=== PATIENT | female | born 1985 | race African-American/Black ===

== ENCOUNTER 2025-03-05 13:25 | Inpatient (IN) | payer OTHER ==
[~2025-03-05] VITALS: Ht 167.6 cm; Wt 88.6 kg
--- NOTE | 2025-03-05 13:40 | ED.PDOC ---
History of Present Illness HPI Comments 39 y/o F with past medical history of HTN had recent onset of palpitation started yesterday 1400, sudden onset noted in smartwatch sinus tachycardia, she followed up in [facility], she was sent to ER for further evaluation. Denies, chest pain, other cardiac symptoms and never had any similar symptoms previou y. Came with EMS and notably had trop of 40 one time, hemodynamically stable. Chief Complaint: Palpitation, HR 120s Time Seen by MD: 13:37 Primary Care Provider: [facility] Reviewed Notes: Nurses Notes, Investigator Claims Notes, Medications, Allergies Allergies: Coded Allergies: Codeine (Verified Allergy, Unknown, 03/05/25) Information Source: Patient Mode of Arrival: EMS Severity: Mild Timing: Days Duration: Since onset, Intermittent Prehospital treatment: Hot Press Operator, Other (trops) Location: left chest Quality intermittent Associated signs and symptoms palpitation Past Medical History PAST MEDICAL HISTORY: Anxiety, HTN Surgical History: Surgical History (Other): tummy tuck, breast implants GROUP PROGRAM MANAGER History: No Pertinent GROUP PROGRAM MANAGER History Family History Family History: Family hx of heart barrie, Family hx of HTN Family History (Other): ''mother has tachycardia needing heart rate pills '' Social History Smoker: Non-Smoker Alcohol: Rarely Drugs: Denies Drug Use Lives In: Home Constitutional: denies: chills, diaphoresis, fatigue, fever, malaise, sweats, weakness, others EENTM: denies: blurred vision, double vision, ear bleeding, ear discharge, ear drainage, ear pain, ear ringing, eye pain, eye redness, hearing loss, mouth pain, mouth swelling, nasal discharge, nose bleeding, nose congestion, nose pain, photophobia, tearing, throat pain, throat swelling, voice changes, others Respiratory: denies: cough, hemoptysis, orthopnea, SOB at rest, shortness of breath, SOB with excertion, stridor, wheezing, others Cardiovascular: reports: palpitations; denies: chest pain, dizzy spells, diaphoresis, Dyspnea on exertion, edema, irregular heart beat, left arm pain, lightheadedness, PND, syncope, others Gastrointestinal: denies: abdomen distended, abdominal pain, blood streaked bowels, constipated, diarrhea, dysphagia, difficulty swallowing, hematemesis, melena, nausea, poor appetite, poor fluid intake, rectal bleeding, rectal pain, vomiting, others Genitourinary: denies: abnormal vagina bleeding, burning, dyspareunia, dysuria, flank pain, frequency, hematuria, incontinence, pain, , vagina discharge, urgency, others Neurological: denies: dizziness, fainting, headache, left sided numbness, left sided weakness, numbness, paresthesia, pre-existing deficit, right sided numbness, right sided weakness, seizure, speech problems, tingling, tremors, weakness, others Musculoskeletal: denies: back pain, gout, joint pain, joint swelling, muscle pain, muscle stiffness, neck pain, others Integumetry: denies: bruises, change in color, change in hair/nails, dryness, laceration, lesions, lumps, rash, wounds, others Allergic/Immunocompromised: denies: Difficulty Healing, Frequent Infections, Hives, Itching, others Hematologic/Lymphatic: denies: anemia, blood clots, easy bleeding, easy bruising, swollen glands, others Endocrine: denies: excessive hunger, excessive sweating, excessive thirst, excessive urination, flushing, intolerance to cold, intolerance to heat, unexplained weight gain, unexplained weight loss, others Psychiatric: denies: anxiety, bipolar disorder, depression, hopeless, panic disorder, schizophrenia, sleepless, suicidal, others Physical Exam General Appearance: No Apparent Distress HEENT: Normal ENT Inspection, Pale Conjuntivae (L), Pale Conjuntivae (R) Neck: Normal Inspection, Supple Respiratory: Lungs Clear, No Accessory Muscle Use, No Respiratory Distress, Normal Breath Sounds Cardiovascular: No Edema, No Murmur, No Gallop, Normal Peripheral Pulses, Tachycardia Breast Exam: Deferred Gastrointestinal: Non Tender, Normal Bowel Sounds Genitalia: Deferred Pelvic: Deferred Rectal: Deferred Extremities: No calf tenderness, No pedal edema Neurologic: Normal Affect, Normal Mood Cerebellar Function: Normal Reflexes: NOT DONE Skin: Dry, None, Normal Color, Warm Lymphatic: NOT DONE Was a procedure done? Was a procedure done?: No EKG EKG : Comments sinus tachycardia Differential Dx Considerations may include: SVT, Sinus tachycardia, dehydration, emotional stress, anxiety, symptomatic palpitation, type 2 NSTEMI, hyperthyroidism, Uncontrolled HTN Low risk of PE X-Ray, Labs, Meds, VS Vital Signs Date Time Temp Pulse Resp B/P (MAP) Pulse Ox O2 Delivery O2 Flow Rate FiO2 03/05/25 17:09 102 03/05/25 17:09 97.9 100 16 150/88 (108) 99 97.9 03/05/25 17:09 99 16 99 Room Air* 0 21 03/05/25 15:33 154/67 03/05/25 13:26 120 03/05/25 13:25 98.2 112 24 179/75 (109) 98 98.2 Lab Test 03/05/25 17:12 03/05/25 14:55 03/05/25 14:06 Range/Units Troponin I High Sensitivity 43 *H 48 *H 55 *H </=34 ng/L White Blood Count 4.2 L 4.4-10.8 10^3/uL Red Blood Count 4.25 4.0-5.20 10^6/uL Hemoglobin 10.5 L 12.2-16.2 g/dL Hematocrit 32.7 L 36.0-46.0 % Mean Corpuscular Volume 77.0 L 80.0-100.0 fL Mean Corpuscular Hemoglobin 24.7 L 28.0-32.0 pg Mean Corpuscular Hemoglobin Concent 32.1 32.0-36.0 g/dL Red Cell Distribution Width 18.3 H 11.8-14.3 % Platelet Count 392 140-450 10^3/uL Mean Platelet Volume 7.5 6.9-10.8 fL Neutrophils (%) (Auto) 55.1 37.0-80.0 % Lymphocytes (%) (Auto) 28.6 10.0-50.0 % Monocytes (%) (Auto) 13.1 H 0.0-12.0 % Eosinophils (%) (Auto) 1.6 0.0-7.0 % Basophils (%) (Auto) 1.6 0.0-2.0 % Neutrophils # (Auto) 2.3 1.6-8.6 10 ^3/uL Lymphocytes # (Auto) 1.2 0.4-5.4 10 ^3/uL Monocytes # (Auto) 0.5 0-1.3 10 ^3/uL Eosinophils # (Auto) 0.1 0-0.8 10 ^3/uL Basophils # (Auto) 0.1 0-0.2 10 ^3/uL Nucleated Red Blood Cells 0.1 % Thyroid Stimulating Hormone (TSH) < 0.01 L 0.55-4.78 uIU/mL Free Thyroxine (T4) Calculated 3.29 H 0.89-1.76 ng/dL Free Triiodothyronine (T3) pg/mL 14.65 H 2.3-4.2 pg/mL Current Medications Medications (Trade) Dose Ordered Sig/Yanci Route Start Time Stop Time Status Last Admin Amlodipine Besylate (Norvasc Tablet) 10 mg ONCE ONCE PO 03/05/25 15:15 03/05/25 15:16 DC 03/05/25 15:33 Aspirin 325 mg ONCE ONCE PO 03/05/25 16:15 03/05/25 16:21 DC 03/05/25 17:18 Atorvastatin Calcium (Lipitor) 40 mg ONCE ONCE PO 03/05/25 16:15 03/05/25 16:21 DC 03/05/25 17:18 Images Reviewed?: Images reviewed and evaluated by me Time of 1ST Reevaluation: 15:28 Reevaluation 1ST: Improved (Elevated blood pressure is 170s, denies any chest pain, patient is given a home medication amlodipine 10 mg oral once. Repeat blood pressure in about 2 hours. Initial EKG reveals no ST-T changes acutely, sinus tachycardia in 120s, hemodynamically stable, mild elevation of troponin 55, next troponin pending, TSH 0.01 low, free T3-T4 pending. Follow up further workup. Patient remains in the ER holding area.) Time of 2ND Reevaluation: 16:07 Reevaluation 2ND: Improved (Elevated trops in 55 > 48 no ekg changes, no chest pain, intermittent palpitations, ordered ECHO, admitting inpatient for further workup and management. Likely tachycardia secondary to hyperthyroidism. Heart score of 2. Discussed with Dr. Flores. ) Time of 3RD Reevaluation: 18:20 Reevaluation 3RD: Unchanged (Troponin elevated, HR still in 110-120s, active palpitation. Discussed with Dr. Flores. Discussed with [place] Reporting Lead over phone. Authorization for Admission obtained. #[id number] ) Consultation: PCP, Cardiology Patient Education/Counseling: Diagnosis, Treatment, Prognosis, Need For Follow Up Family Education/Counseling: No Family Present Sepsis Sepsis Reasesment Focused Exam Sepsis focused exam: focus exam completed, time: Departure 1 Departure Time of Disposition: 16:11 Impression: Primary Impression: Tachycardia Additional Impressions: Hyperthyroidism Palpitation Ruled out for myocardial infarction Disposition: ADMITTED INPATIENT Admit to: Tele Condition: Fair Critical Care Note Critical Care Time?: No Stability Stability form required: No Heart Score Heart Score: Heart Score Response (Comments) Value History N/A 0 EKG Normal 0 Age <45 0 Risk Factors 1 or 2 risk factors 1 Troponin 1-2 x's Normal limit 1 Total 2 ASHLEE PERRY RESIDENT Mar 05, 2025 13:40
[2025-03-05] MEDS ORDERED: FURO20TA4 GT (13:52)
[2025-03-05] MEDS ORDERED: AML5T GT (13:52)
[2025-03-05 14:15] LABS: Basophils # (auto) 0.1 10 ^3/uL (0-0.2); Eosinophils # (auto) 0.1 10 ^3/uL (0-0.8); Lymphocytes # (auto) 1.2 10 ^3/uL (0.4-5.4); Monocytes # (auto) 0.5 10 ^3/uL (0-1.3); Neutrophils # (auto) 2.3 10 ^3/uL (1.6-8.6); Nucleated Red Blood Cells % 0.1 %; White Blood Cell 4.2 10^3/uL (4.4-10.8)
[2025-03-05 14:16] LABS: Basophils % (auto) 1.6 % (0.0-2.0); Eosinophils % (auto) 1.6 % (0.0-7.0); Hematocrit 32.7 % (36.0-46.0); Hemoglobin 10.5 g/dL (12.2-16.2); Lymphocytes % (auto) 28.6 % (10.0-50.0); Mean Corpuscular Hemoglobin 24.7 pg (28.0-32.0); Mean Corpuscular Hgb Conc. 32.1 g/dL (32.0-36.0); Monocytes % (auto) 13.1 % (0.0-12.0); Neutrophils % (auto) 55.1 % (37.0-80.0); Platelet Count (auto) 392 10^3/uL (140-450); Red Blood Cells 4.25 10^6/uL (4.0-5.20); Red Cell Distribution Width 18.3 % (11.8-14.3)
[2025-03-05] MEDS: amLODIPine BESYLATE 5 MG TAB PO ONE (15:33)
[2025-03-05 15:45] LABS: Free T3 14.65 pg/mL (2.3-4.2); Free T4 (Free Thyroxine) 3.29 ng/dL (0.89-1.76)
[2025-03-05 17:09] VITALS: PULSE 99; RESP 16; O2SAT 99
[2025-03-05] MEDS: ATORVASTATIN 20 MG TAB PO ONE (17:18)
[2025-03-05] MEDS: ASPirin 325 MG TAB PO ONE (17:18)
[2025-03-05 19:30] VITALS: PULSE 104; RESP 18; O2SAT 98
--- NOTE | 2025-03-05 22:14 | DVHHPRES ---
History of Present Illness Resident Creating Document: KARMA MONZON History of Present Illness Nilton Guan is a 39-year-old female patient who presents to the ED with chief complaint of sudden onset palpitation which started 24 hours before her admission. Per patient, her smart watch diagnosed with sinus tachycardia. Denies syncope, chest pain, dyspnea, nausea, vomiting, diarrhea, abdominal pain, recent travel, sick contacts and motor or sensory deficits. Past medical history: Anxiety, hypertension Surgical history: , liposuction, breast augmentation Family history: All her family has heart disease and hypertension Social history: Lives with family. Denies current tobacco, alcohol and other drug abuse. Occasionally drinks alcohol Allergies: Codeine Home medication: Denies Patient seen and examined at bedside. Currently has no new complaints. Obtain thyroid ultrasound which showed multinodular goiter which is possibly associated with Graves disease. Pending antibody results. Patient is started on atenolol Past Medical History Per HPI Past Surgical History Per HPI Family History Per HPI Past Social History Per HPI Review of Systems Review of Systems Per HPI Allergies: Coded Allergies: Codeine (Verified Allergy, Unknown, 03/05/25) Exam Vital Signs Vital Signs Date Time Temp Pulse Resp B/P (MAP) Pulse Ox O2 Delivery O2 Flow Rate FiO2 03/05/25 20:00 98 03/05/25 19:30 99.3 18 133/73 (93) 98 99.3 03/05/25 19:30 Room Air* 0 21 Exam Patient lying in bed, in no acute distress General: Lucid, afebrile, mucosae are moist Cardiovascular: Tachycardia. Normal S1 and S2. Early peaking systolic crescendo decrescendo murmur best heard in a Abdomen: Soft, nontender, no organomegaly, normal bortic foci. No gallops or rubs Respiratory: Normal ventilation mechanics. Clear lung sounds on auscult ationowel sounds MSK/skin: Mobilizes 4 limbs. Skin is dry and warm Neurological: Oriented in 3 spheres. No motor no sensitive deficits. Pupils are isocoric and reactive Labs/Xrays Labs Test 03/05/25 17:12 03/05/25 14:06 Range/Units Troponin I High Sensitivity 43 *H </=34 ng/L White Blood Count 4.2 L 4.4-10.8 10^3/uL Red Blood Count 4.25 4.0-5.20 10^6/uL Hemoglobin 10.5 L 12.2-16.2 g/dL Hematocrit 32.7 L 36.0-46.0 % Mean Corpuscular Volume 77.0 L 80.0-100.0 fL Mean Corpuscular Hemoglobin 24.7 L 28.0-32.0 pg Mean Corpuscular Hemoglobin Concent 32.1 32.0-36.0 g/dL Red Cell Distribution Width 18.3 H 11.8-14.3 % Platelet Count 392 140-450 10^3/uL Mean Platelet Volume 7.5 6.9-10.8 fL Neutrophils (%) (Auto) 55.1 37.0-80.0 % Lymphocytes (%) (Auto) 28.6 10.0-50.0 % Monocytes (%) (Auto) 13.1 H 0.0-12.0 % Eosinophils (%) (Auto) 1.6 0.0-7.0 % Basophils (%) (Auto) 1.6 0.0-2.0 % Neutrophils # (Auto) 2.3 1.6-8.6 10 ^3/uL Lymphocytes # (Auto) 1.2 0.4-5.4 10 ^3/uL Monocytes # (Auto) 0.5 0-1.3 10 ^3/uL Eosinophils # (Auto) 0.1 0-0.8 10 ^3/uL Basophils # (Auto) 0.1 0-0.2 10 ^3/uL Nucleated Red Blood Cells 0.1 % Thyroid Stimulating Hormone (TSH) < 0.01 L 0.55-4.78 uIU/mL Free Thyroxine (T4) Calculated 3.29 H 0.89-1.76 ng/dL Free Triiodothyronine (T3) pg/mL 14.65 H 2.3-4.2 pg/mL Assessment/Plan Assessment/Plan Assessment: Hyperthyroidism NSTEMI probable type 2 Microcytic anemia Vitamin-D deficiency Multinodular thyroid goiter Hypokalemia Plan: TSH below 0.01, free T4 3.29. Interpreted as symptomatic hyperthyroidism. Initiated beta-blockers. Have ordered autoimmune antibodies to diagnosed Graves disease. Thyroid ultrasound shows multinodular goiter possible Graves disease. Ordered echocardiogram due to NSTEMI (probable type 2) Evaluate need of endocrinology evaluation. Ordered anemia workup Goals of care discussed with patient for over 18 minutes: Full code status Discussed plan with Dr. Potter, patient and nurses: Initiated beta roxane for symptomatic hyperthyroidism (no signs of thyrotoxicosis). Ordered echocardiogram to evaluate cardiac function. Pending complementary workup results. Patient unstable for transferred to [place]. Plan discussed with: Patient, Other (Nurses) My Orders Orders - KARMA MONZON RESIDENT Procedure Category Date Status Time Admit ADMIT 03/05/25 Transmitted 22:10 Code Status CODE 03/05/25 Transmitted 22:10 Vital Signs [facility] 03/05/25 Transmitted 22:10 Review Orders With [facility] 03/05/25 Transmitted Adm.Md 22:10 Regular Diet DIET 03/06/25 Transmitted Breakfast Acetaminophen Tablet PHA 03/05/25 Transmitted (Tylenol Tablet) 22:15 Notify Of Changes [facility] 03/05/25 Transmitted From Base 22:10 Advance Directive [facility] 03/05/25 Transmitted 22:10 Patient Condition ORDERS 03/05/25 Transmitted 22:10 Allergies [facility] 03/05/25 Transmitted 22:10 Ondansetron Hcl PHA 03/05/25 Transmitted (Zofran) 22:15 Morphine 2mg Iv Q4hprn PHA 03/05/25 Transmitted 22:15 Oxygen By Nasal RT 03/05/25 Transmitted Cannula 22:10 Stat Ekg For Chest [facility] 03/05/25 Transmitted Pain 22:10 Notify Of Changes [facility] 03/05/25 Transmitted From Base 22:10 Septic Tank Cleaner For [facility] 03/05/25 Transmitted 24 Hours 22:10 Emergency Dysrhythmia [facility] 03/05/25 Transmitted Protocol 22:10 Rhythm Strips Once [facility] 03/05/25 Transmitted Every Shift 22:10 Vitamin D, 25-Hydroxy LAB 03/05/25 Transmitted 22:10 Vitamin B12 LAB 03/05/25 Transmitted 22:10 Urinalysis LAB 03/05/25 Transmitted 22:10 Phosphorus LAB 03/05/25 Transmitted 22:10 Magnesium LAB 03/05/25 Transmitted 22:10 Hemoglobin A1c LAB 03/05/25 Transmitted 22:10 Drug Screen LAB 03/05/25 Transmitted 22:10 Lipid Panel LAB 03/05/25 Transmitted 22:10 Comprehensive LAB 03/06/25 Verified Metabolic Panel 04:00 Complete Blood Count LAB 03/06/25 Verified 04:00 Comprehensive LAB 03/05/25 Transmitted Metabolic Panel 22:10 PTPTT LAB 03/06/25 Verified 04:00 Date of Service: Mar 05, 2025 Billing Provider: EARLENE POTTER MD Common Visit Codes: [id number] INP/OBS CARE (HIGH) KARMA MONZON RESIDENT Mar 05, 2025 22:14 EARLENE POTTER MD Mar 06, 2025 21:19
[2025-03-05] MEDS ORDERED: ACETAMINOPHEN 325 MG TAB PO PRN (22:15)
[2025-03-05] MEDS ORDERED: ONDANSETRON HCL 4 MG/2 ML VIAL IV PRN (22:15)
[2025-03-05] MEDS ORDERED: MORPHINE SULFATE INJ 2 MG/ml SYRG IV PRN (22:15)
[2025-03-05 22:41] LABS: Magnesium 1.7 mg/dL (1.6-2.6)
[2025-03-05 22:42] LABS: Phosphorus 3.6 mg/dL (2.4-5.1)
[2025-03-05 22:44] LABS: Alanine Aminotransferase 38 U/L (7-40); Calcium 9.7 mg/dL (8.7-10.4); Carbon Dioxide 23 mmol/L (20-31); Chloride 105 mmol/L (98-107)
[2025-03-05 22:45] LABS: Albumin 4.1 g/dL (3.2-4.8); Anion Gap 12 (5-15); Aspartate Aminotransferase 32 U/L (13-40); Glucose 97 mg/dL (74-106); Potassium 3.6 mmol/L (3.5-5.1); Sodium 140 mmol/L (136-145); Total Protein 6.7 g/dL (5.7-8.2)
[2025-03-05 22:46] LABS: Alkaline Phosphatase 45 U/L (46-116); Bilirubin, Total 1.7 mg/dL (0.2-1.0); Blood Urea Nitrogen 8 mg/dL (9-23)
--- NOTE | 2025-03-05 23:16 | DVH ---
EXAM: US THYROID; DATE: March 05, 2025 HISTORY: Hyperthyroidism COMPARISON: None TECHNIQUE: Real-time sonographic imaging was performed of the thyroid gland using grayscale and color flow imaging with a high-frequency linear transducer. FINDINGS: Right thyroid lobe measures 4.9 x 2 x 1.7 cm and left thyroid lobe measures 4.6 x 1.8 x 1.8 cm in the isthmus is enlarged measuring 7 mm AP. The thyroid demonstrates increased vascularity and innumerable small indistinct hypoechoic nodules. t he left thyroid lobe is dominated by a single hypoechoic nodule with indistinct borders which measure s approximately 3.1 x 0.93 cm. IMPRESSION: 1. Multinodular goiter with findings suggesting possible Graves disease. [employer] TI-RADS Categories and Recommendations (2017): TR1: 0 points, Benign, No FNA TR2: 2 points, Not suspicious, No FNA TR3: 3 points, Mildly suspicious, FNA if > or = 2.5 cm, Follow if > or = 1.5 cm TR4: 4-6 points, Moderately Suspicious, FNA if > or = 1.5 cm, Follow if > or = 1.0 cm TR5: 7+ points, Highly Suspicious, FNA if > or = 1.0 cm, Follow if > or = 0.5 cm Follow-up ultrasound guidelines: TR5: yearly for 5 years, if no growth or change in TI-RADS level TR4: at 1, 2, 3 and 5 years, if no growth or change in TI-RADS level TR3: at 1, 3 and 5 years, if no growth or change in TI-RADS level If increased but below threshold for FNA, repeat in one year. Source: ACR Thyroid Imaging, Reporting and Data System (TI-RADS): White Paper of the ACR TI-RADS Committee. Cleo pillai al., J Am Víctor Radiol 2017;14:587-595.
[2025-03-05 23:53] VITALS: BP 115/70; PULSE 94; RESP 18; TEMP 98.5; O2SAT 100
[2025-03-06] VITALS (8 sets, daily range): BP systolic 106–131; BP diastolic 62–73; PULSE 86–103; RESP 16–20; TEMP 98.1–98.7; O2SAT 98–100
[2025-03-06 00:38] LABS: Urine Bacteria None Seen /hpf (None Seen)
[2025-03-06 00:47] LABS: Urine Blood Negative /uL (Negative); Urine Clarity Clear (Clear); Urine Color Yellow (Yellow); Urine Mucus FEW (None Seen); Urine Protein, UAD Negative (Negative); Urine Specific Gravity 1.023 (1.001-1.035); Urine Squamous Epithelial Cell FEW /hpf (<5); Urine Urobilinogen 2 mg/dL (Negative); Urine WBC 2 /HPF (0-5)
[2025-03-06] MEDS: ATENOLOL 25 MG TAB PO ONE (01:30)
[2025-03-06 02:01] LABS: Amphetamine Screen, Urine Neg (NEGATIVE); Barbiturate Scree,Urine Neg (NEGATIVE); Benzodiazephine Screen, Urine Neg (NEGATIVE); Cannabinoid Screen, Urine Neg (NEGATIVE); Cocaine Screen, Urine Neg (NEGATIVE); Opiate Scree,Urine Neg (NEGATIVE); Phencyclidine Screen, Urine Neg (NEGATIVE)
[2025-03-06 06:37] LABS: Basophils # (auto) 0 10 ^3/uL (0-0.2); Eosinophils # (auto) 0.6 10 ^3/uL (0-0.8); Lymphocytes # (auto) 1.5 10 ^3/uL (0.4-5.4); Monocytes # (auto) 0.7 10 ^3/uL (0-1.3); Nucleated Red Blood Cells % 0.1 %
[2025-03-06 06:39] LABS: Basophils % (auto) 0.3 % (0.0-2.0); Hematocrit 29.7 % (36.0-46.0); Hemoglobin 9.4 g/dL (12.2-16.2); Mean Corpuscular Hemoglobin 24.5 pg (28.0-32.0); Mean Corpuscular Hgb Conc. 31.8 g/dL (32.0-36.0); Mean Corpuscular Volume 77.1 fL (80.0-100.0); Monocytes % (auto) 17.9 % (0.0-12.0); Neutrophils # (auto) 1.1 10 ^3/uL (1.6-8.6); Neutrophils % (auto) 27.6 % (37.0-80.0); Platelet Count (auto) 369 10^3/uL (140-450); Red Blood Cells 3.85 10^6/uL (4.0-5.20); Red Cell Distribution Width 18.6 % (11.8-14.3); White Blood Cell 3.9 10^3/uL (4.4-10.8)
[2025-03-06 06:52] LABS: INR 1.01 (0.9-1.15); Partial Thromboplastin Time 24.3 SEC (24.5-34.5); Prothrombin Time 10.7 sec (9.3-11.8)
[2025-03-06 06:53] LABS: Eosinophils % (auto) 15.2 % (0.0-7.0)
[2025-03-06 06:56] LABS: Alanine Aminotransferase 29 U/L (7-40); Albumin 3.5 g/dL (3.2-4.8); Anion Gap 9 (5-15); Aspartate Aminotransferase 22 U/L (13-40); BUN/Creatinine Ratio 19.6 (10.0-20.0); Bilirubin, Total 1.1 mg/dL (0.2-1.0); Blood Urea Nitrogen 11 mg/dL (9-23); Carbon Dioxide 25 mmol/L (20-31); Glucose 97 mg/dL (74-106); Sodium 142 mmol/L (136-145); Total Protein 5.8 g/dL (5.7-8.2)
[2025-03-06 07:03] LABS: Alkaline Phosphatase 36 U/L (46-116); Chloride 108 mmol/L (98-107); Potassium 3.1 mmol/L (3.5-5.1)
[2025-03-06] MEDS ORDERED: AMLO1TAB23 PO (07:07)
[2025-03-06] MEDS ORDERED: HYDR25TA5 PO (07:07)
--- NOTE | 2025-03-06 10:14 | ECG ---
[facility] Test Date: 2025-03-05 Test Time: 13:26:09 Pat Name: JARRETT GIBBONS Department: ED Room: 0240T A Gender: F Records And Information Manager: TJ : 1985 Requested By: GABY ROMERO Order Number: [id number] Reading MD: Albert Cisneros Measurements Intervals [place] Rate: 120 P: -40 OR: 143 QRS: 7 QRSD: 71 T: 0 QT: 342 QTc: 484 Interpretive Statements Sinus tachycardia Borderline T abnormalities, anterior leads Electronically Signed On 03-07-2025 13:06:43 PDT by Albert Cisneros Please click the below link to view image of tracing.
[2025-03-06 10:38] LABS: % Iron Saturation 12.9 % (15-50)
[2025-03-06] MEDS: ERGOCALCIFEROL 50,000 UNIT(1.25MG) CAP PO SCH (10:40)
[2025-03-06] MEDS: POTASSIUM CHL 20 Meq TABLET PO ONE ×2 (10:41→10:45)
[2025-03-06 10:56] LABS: Ferritin 20.3 ng/mL (10-291); Folate (Folic Acid) 11.26 ng/mL (>5.38)
--- NOTE | 2025-03-06 10:58 | DVHPN2 ---
Progress Note Date Seen: Mar 06, 2025 Medical Necessity Reason Pt with a Central, PICC or Fol: No Subjective Patient reports: No new complaints Review of Systems: HEENT:Normal, CVS:Normal, RESPIRATORY:Normal, GI:Normal, :Normal, MSK:Normal, NEURO:Normal Objective vital signs Vital Sign Date Time Temp Pulse Resp B/P (MAP) Pulse Ox O2 Delivery O2 Flow Rate FiO2 03/06/25 08:13 98.5 103 18 107/67 (80) 98 98.5 03/05/25 23:53 Room Air* 0 21 Total Intake and Output 03/05/25 03/05/25 03/06/25 15:00 23:00 07:00 Intake Total 150 ml Balance 150 ml medications Current Medications Medications Dose Ordered Sig/Yanci Route Start Time Stop Time Status Last Admin Dose Admin Acetaminophen 650 mg Q6HP PRN PO 03/05/25 22:15 Ondansetron HCl 4 mg Q4HP PRN IV 03/05/25 22:15 Morphine Sulfate 2 mg Q4HPRN PRN IV 03/05/25 22:15 Atenolol 25 mg BID PO 03/06/25 10:00 Ergocalciferol 50,000 unit Q7D PO 03/06/25 08:15 03/06/25 10:40 50,000 UNIT Examination: GENERAL:Normal, HEENT:Normal, NECK:Normal, LUNGS:Normal, CVS:Normal, CVS:Abnormal (tachycardia), ABDOMEN:Normal, MSK:Normal, SKIN:Normal, NEURO:Normal, :Normal laboratory and microbiology Laboratory Tests 03/06/25 06:13 Test 03/06/25 06:13 Range/Units Serum Glucose 97 74-106 mg/dL Problem List/Assessment/Plan Problem List/Assessment/Plan #1 thyrotoxicosis: atenolol, methimazole, usg #2 htn #3 hypokalemia: replace #4 obesity #5 nstemi ?type 2: echo, cardio eval Plan discussed with: Patient My Orders My Orders Orders - WILIAN JOHNSON MD Procedure Category Date Status Time Potassium Er Tablet PHA 03/06/25 Verified (Klor-Con Tablet) 10:45 * Cardiology Consult CONS 03/06/25 Verified 10:43 Methimazole Tab PHA 03/06/25 Verified (Tapazole) 10:45 Methimazole Tab PHA 03/07/25 Verified (Tapazole) 10:00 Basic Metabolic Panel LAB 03/07/25 Verified 06:00 Magnesium LAB 03/07/25 Verified 05:00 Date of Service: Mar 06, 2025 Billing Provider: WILIAN JOHNSON MD Common Visit Codes: [id number] INP/OBS CARE(HIGH) WILIAN JOHNSON MD Mar 06, 2025 10:58
[2025-03-06] MEDS: ATENOLOL 25 MG TAB PO SCH (13:59)
[2025-03-06] MEDS: methIMAzole 5 MG TAB PO ONE (13:59)
--- NOTE | 2025-03-06 16:40 | DVHSR ---
APPROVED REPORT EXAM: Two-dimensional and M-mode echocardiogram with Doppler and color Doppler. Blood Pressure: 107/65 mmHg INDICATION Dyspnea rule out structural heart disease RISK FACTORS Height: 5'6, Weight: 193 DIMENSIONS LVDd4.2 (3.8-5.7cm)LA (2D)3.0 (1.9-4.0cm)Aortic Root3.0 (2.0-3.7cm) LVDs2.3 (2.5-4.0cm)LA (MM) (1.9-4.0cm)Aortic Cusp Exc1.3 (1.5-2.0cm) EF (%) 65.0 (55-70%)Rt. Atrium2.9 (1.9-4.0cm)Asc. Aorta cm IVSd0.8 (0.7-1.1cm)RV (D) (1.8-2.4cm) PWd0.9 (0.7-1.1cm) Mitral Valve MitralMitral Stenosis E wave1.00m/sMV Mean GR.mmHg A wave1.10m/sMV Peak GR.mmHg E/A ratio0.92D MVAcm2 DECEL [id number] 1/2 Timems Aortic Valve Aortic ValveAortic Stenosis V11.50m/Amber Mean GR.8mmHg V21.83m/Amber Peak GR.13mmHg LVOT Diameter2.0 (1.8-2.4cm)Doppler AVA2.57cm2 Pulmonic Valve V21.27m/s Tricuspid Valve TR Velocity2.61m/s Conclusion LVEF 60-65% normal rv function normal
[2025-03-07 01:09] VITALS: BP 102/61; PULSE 80; RESP 16; TEMP 98.3; O2SAT 100
[2025-03-07 05:14] VITALS: BP 107/71; PULSE 86; RESP 18; TEMP 98.1; O2SAT 100
[2025-03-07 06:30] LABS: Anion Gap 7 (5-15); Carbon Dioxide 23 mmol/L (20-31); Potassium 3.9 mmol/L (3.5-5.1); Sodium 141 mmol/L (136-145)
[2025-03-07 06:34] LABS: Chloride 111 mmol/L (98-107)
[2025-03-07 06:36] LABS: BUN/Creatinine Ratio 17.5 (10.0-20.0); Blood Urea Nitrogen 10 mg/dL (9-23); Glucose 94 mg/dL (74-106)
[2025-03-07 06:37] LABS: Magnesium 1.8 mg/dL (1.6-2.6)
[2025-03-07 08:00] VITALS: BP 106/64; PULSE 83; PULSE 92; RESP 16; RESP 18; TEMP 98.5; O2SAT 97; O2SAT 99
[2025-03-07 08:07] LABS: Thyroid Peroxidase (TPO) Ab 76 IU/mL (0-34)
[2025-03-07] MEDS: methIMAzole 5 MG TAB PO SCH (09:09)
--- NOTE | 2025-03-07 10:03 | DVHDS2 ---
Discharge Summary Date of Admission Mar 05, 2025 at 22:10 Date of Discharge: Mar 07, 2025 Labs/Diagnostic Data: Laboratory Results Test 03/07/25 05:38 03/06/25 11:50 03/06/25 06:13 03/06/25 00:37 Sodium Level 141 mmol/L (136-145) Potassium Level 3.9 mmol/L (3.5-5.1) Chloride Level 111 mmol/L (98-107) Carbon Dioxide Level 23 mmol/L (20-31) Anion Gap 7 (5-15) Blood Urea Nitrogen 10 mg/dL (9-23) Creatinine 0.57 mg/dL (0.550-1.02) Glomerular Filtration Rate Calc 117 mL/min (>90) BUN/Creatinine Ratio 17.5 (10.0-20.0) Serum Glucose 94 mg/dL (74-106) Calcium Level 9.0 mg/dL (8.7-10.4) Magnesium Level 1.8 mg/dL (1.6-2.6) Haptoglobin 129 mg/dL (42-296) White Blood Count 3.9 10^3/uL (4.4-10.8) Red Blood Count 3.85 10^6/uL (4.0-5.20) Hemoglobin 9.4 g/dL (12.2-16.2) Hematocrit 29.7 % (36.0-46.0) Mean Corpuscular Volume 77.1 fL (80.0-100.0) Mean Corpuscular Hemoglobin 24.5 pg (28.0-32.0) Mean Corpuscular Hemoglobin Concent 31.8 g/dL (32.0-36.0) Red Cell Distribution Width 18.6 % (11.8-14.3) Platelet Count 369 10^3/uL (140-450) Mean Platelet Volume 7.8 fL (6.9-10.8) Neutrophils (%) (Auto) 27.6 % (37.0-80.0) Lymphocytes (%) (Auto) 39.0 % (10.0-50.0) Monocytes (%) (Auto) 17.9 % (0.0-12.0) Eosinophils (%) (Auto) 15.2 % (0.0-7.0) Basophils (%) (Auto) 0.3 % (0.0-2.0) Neutrophils # (Auto) 1.1 10 ^3/uL (1.6-8.6) Lymphocytes # (Auto) 1.5 10 ^3/uL (0.4-5.4) Monocytes # (Auto) 0.7 10 ^3/uL (0-1.3) Eosinophils # (Auto) 0.6 10 ^3/uL (0-0.8) Basophils # (Auto) 0 10 ^3/uL (0-0.2) Nucleated Red Blood Cells 0.1 % Reticulocyte Count (auto) 1.24 % (0.5-1.5) Prothrombin Time 10.7 sec (9.3-11.8) Prothrombin Time INR 1.01 (0.9-1.15) Activated Partial Thromboplast Time 24.3 SEC (24.5-34.5) Iron Level 40 ug/dL (50-170) Total Iron Binding Capacity 309 ug/dL (250-425) Percent Iron Saturation 12.9 % (15-50) Ferritin 20.3 ng/mL (10-291) Total Bilirubin 1.1 mg/dL (0.2-1.0) Aspartate Amino Transferase (AST) 22 U/L (13-40) Alanine Aminotransferase (ALT) 29 U/L (7-40) Alkaline Phosphatase 36 U/L (46-116) Lactate Dehydrogenase 166 U/L (120-246) Total Protein 5.8 g/dL (5.7-8.2) Albumin 3.5 g/dL (3.2-4.8) Folic Acid 11.26 ng/mL (>5.38) Thyroid Peroxidase Antibodies 76 IU/mL (0-34) Urine Color Yellow (Yellow) Urine Clarity Clear (Clear) Urine pH 6.0 (5.0-9.0) Urine Specific Patterson 1.023 (1.001-1.035) Urine Protein Negative (Negative) Urine Ketones Negative (Negative) Urine Blood Negative /uL (Negative) Urine Nitrite Negative (Negative) Urine Bilirubin Negative (Negative) Urine Urobilinogen 2 mg/dL (Negative) Urine Leukocyte Esterase Negative /uL (Negative) Urine RBC 2 /hpf (0 - 4) Urine Microscopic WBC 2 /HPF (0-5) Urine Squamous Epithelial Cells Few /hpf (<5) Urine Bacteria None seen /hpf (None Seen) Urine Mucus Few (None Seen) Urine Glucose Normal mg/dL (Normal) Urine Test Negative (Negative) Urine Opiates Screen Neg (NEGATIVE) Urine Fentanyl Screen Neg (NEGATIVE) Urine Barbiturates Screen Neg (NEGATIVE) Urine Phencyclidine Screen Neg (NEGATIVE) Urine Amphetamines Screen Neg (NEGATIVE) Urine Benzodiazepines Screen Neg (NEGATIVE) Urine Cocaine Screen Neg (NEGATIVE) Urine Cannabinoids Screen Neg (NEGATIVE) Test 03/05/25 17:12 03/05/25 14:06 Troponin I High Sensitivity 43 ng/L (</=34) Hemoglobin A1c 5.2 % A1C (<5.7) Phosphorus Level 3.6 mg/dL (2.4-5.1) Triglycerides Level 84 mg/dL (< 150) Cholesterol Level 125 mg/dL (< 200) LDL Cholesterol 69 mg/dL (< 100) HDL Cholesterol 46 mg/dL (40-59) Vitamin B12 Level 383 pg/mL (211-911) Vitamin D 25-Hydroxy 20.2 ng/mL (30.0-100) Thyroid Stimulating Hormone (TSH) < 0.01 uIU/mL (0.55-4.78) Free Thyroxine (T4) Calculated 3.29 ng/dL (0.89-1.76) Free Triiodothyronine (T3) pg/mL 14.65 pg/mL (2.3-4.2) Other Laboratory Tests 03/07/25 05:38 03/06/25 06:13 Brief Hx & Hospital Course: SEE DICTATED NOTE Condition at Discharge: Good Final Diagnosis/Problems List THYROTOXICOSIS Discharge Disposition: Home Discharge Instruct/Medications Diet: Regular Activity: No Restrictions, As Tolerated Follow Up/Referral: FU WITH [facility]/ENDOCRINE Medications: SCRIPT TO PHARMACY Discharge Statement: "Patient was advised to return to the ER or call 911 if any headaches, dizziness, shortness of breath, chest pain, abdominal pain, bleeding, fevers, or worsening of medical condition. Patient was counseled about treatment plan, medications, possible side effects, patientverbalized understanding. All questions were answered to the best of my ability. This discharge took greater then 30 minutes in planning, reviewing documentation, counseling the patient, and discussing with other team members." ASSESSMENT ASSESSMENT Assessment THYROTOXICOSIS Date of Service: Mar 07, 2025 Billing Provider: WILIAN JOHNSON MD Common Visit Codes: 26015-IVL/OBS DISCH DAY >30min WILIAN JOHNSON MD Mar 07, 2025 10:03
[2025-03-07] MEDS ORDERED: METH-552 PO (10:05)
[2025-03-07] MEDS ORDERED: ATEN-60 PO (10:05)
--- NOTE | 2025-03-07 10:18 | DVHDS ---
DATE OF DISCHARGE: 03/07/2025 The patient is a 39-year-old lady who is admitted with a history of palpitations. She has a previous history of hypertension. HOSPITAL COURSE: The patient was noted to be tachycardic. Her thyroid functions were abnormal with a TSH less than 0.01, a free T4 of 3.29, and free T3 of 14.6. The patient was also anemic with a hemoglobin of 9.4. The patient had a thyroid ultrasound that showed evidence of multinodular goiter with findings suggestive of possible Graves' disease. The patient's troponin levels were mildly elevated at 48. Echocardiogram was normal. She will now be discharged home to be on atenolol 25 mg b.i.d. along with methimazole 20 mg daily. She is to follow up with [facility] and with Endocrinology. The patient has been given a copy of her results. She is also encouraged to take dxal-lpb-ekejcyc iron tablets. FINAL DIAGNOSES: * Thyrotoxicosis with questionable Graves' disease. * Hypertension. * Hypokalemia. * Obesity. * Non-STEMI, likely type 2. Time spent in discharge planning and review of plan with the patient and nursing was 39 minutes. MD MANUEL Palmer/LILIA TID: [id number] RECEIPT: [id number]
[2025-03-07 11:26] VITALS: BP 106/64; PULSE 83; TEMP 36.9
[2025-03-07 11:51] LABS: Hepatitis B Surface Antigen Negative (Negative); Hepatitis C Antibody Negative (Negative)
[2025-03-07 12:07] LABS: Thyrotropin Receptor Antibody 3.21 IU/L (0.00-1.75)
[2025-03-08 20:06] LABS: Thyroglobulin Antibody <1.0 IU/mL (0.0-0.9)
[2025-03-09 14:07] LABS: Thyroid Stimulating Immunoglob 2.61 IU/L (0.00-0.55)
== END 2025-03-07 12:40 | disposition home or self-care (01) | DRG 643 ==
LOC: EDBD 13:25 → ER 13:25 → OVERFLOW 22:10 → TELE-EAST 23:36
PROVIDERS: ADMIT Internal Medicine; ATTEND Internal Medicine
DX: E05.20 Thyrotoxicosis with toxic multinodular goiter without thyrotoxic crisis or storm (principal); I21.A1 Myocardial infarction type 2; E87.6 Hypokalemia; I10 Essential (primary) hypertension; R00.0 Tachycardia, unspecified; D50.9 Iron deficiency anemia, unspecified; E55.9 Vitamin D deficiency, unspecified; E66.9 Obesity, unspecified; F41.9 Anxiety disorder, unspecified; Z88.5 Allergy status to narcotic agent; Z79.899 Other long term (current) drug therapy; Z98.82 Breast implant status; Z82.49 Family history of ischemic heart disease and other diseases of the circulatory system; Z98.891 History of uterine scar from previous surgery; Z68.31 Body mass index [BMI] 31.0-31.9, adult
CPT/HCPCS: 36415; 76536; 80048; 80053; 80061; 80307; 81001; 81025; 82306; 82607; 82728; 82746; 83010; 83036; 83540; 83550; 83615; 83735; 84100; 84439; 84443; 84445; 84481; 84484; 85025; 85045; 85610; 85730; 86376; 86800; 86803; 87340; 93005; 93306; G0378